=== PATIENT | male | born 1990 | race Caucasian/White ===

== ENCOUNTER 2020-11-16 21:00 | Emergency (ER) | payer OTHER ==
[~2020-11-16 21:00] MED LIST: IBUPROFEN600 MG PO; PERCOCET 5/325 T1 EA PO; ZOFRAN ODT 4 MG4 MG PO
[2020-11-17] MEDS ORDERED: ONDANSETRON ODT4 MG SL (00:24)
[2020-11-17] MEDS ORDERED: DIMETAPP COLD237 M1 PO (00:24)
== END 2020-11-17 00:28 | disposition home or self-care (01) ==
LOC: ER1 21:00
DX: J06.9 Acute upper respiratory infection, unspecified (principal); Z87.442 Personal history of urinary calculi; Z20.822 Contact with and (suspected) exposure to COVID-19
CPT/HCPCS: 99283; U0002

== ENCOUNTER 2021-04-10 22:04 | Emergency (ER) | payer OTHER ==
[~2021-04-10 22:04] MED LIST changes: +DIMETAPP COLD237 M1 PO; +ONDANSETRON ODT4 MG SL
[2021-04-11] MEDS ORDERED: CYCLOBENZAPRINE5 MG PO (01:13)
[2021-04-11] MEDS ORDERED: NAPROXEN500 MG PO (01:13)
== END 2021-04-11 01:54 | disposition home or self-care (01) ==
LOC: ER1 22:04
DX: M48.061 Spinal stenosis, lumbar region without neurogenic claudication (principal); M48.07 Spinal stenosis, lumbosacral region; M51.16 Intervertebral disc disorders with radiculopathy, lumbar region; M51.17 Intervertebral disc disorders with radiculopathy, lumbosacral region; Z87.442 Personal history of urinary calculi
CPT/HCPCS: 72131; 96372; 99283; J1100; J1885